=== PATIENT | female | born 1960 | race Caucasian/White ===

== ENCOUNTER 2018-03-09 08:35 | Emergency (ER) | payer OTHER ==
[2018-03-09] MEDS ORDERED: Ondansetron ODT 4 MG TAB ONE (08:57)
[2018-03-09] MEDS ORDERED: Lorazepam 2 MG/ML VIAL ONE (08:57)
[2018-03-09 09:18] LABS: #Eosinphils 0.1 thou/uL (0.0-0.7); #Lymphocytes 1.9 thou/uL (1.20-3.40); #Monocytes 0.6 thou/uL (0.11-0.59); #Neutrophils 3.6 thou/uL (1.40-6.50); %Basophils 0.8 % (0.0-1.0); %Eosinophils 1.2 % (0.0-10.0); %Lymphocytes 29.8 % (21.0-51.0); %Neutrophils 58.2 % (42.0-75.0); Hemoglobin 14.5 g/dL (12.0-16.0); Mean Corpuscular HGB CONC 34.9 g/dL (32.0-36.0); Mean Corpuscular Hemoglobin 35.3 pg (27.0-31.0); Mean Platelet Volume 6.1 fL (7.4-10.4); Platelet Count 190 thou/uL (130-400); RBC Distribution Width 13.5 % (11.5-14.5); Red Blood Cell (RBC) Count 4.12 mill/uL (4.20-5.40); White Blood Cell (WBC) Count 6.2 thou/uL (4.8-10.8)
[2018-03-09 09:59] LABS: ALT (SGPT) 26 U/L (8-55); AST (SGOT) 61 U/L (5-34); Albumin 4.6 g/dL (3.5-5.0); Alkaline Phosphatase 83 U/L (40-150); Anion Gap 24 mmol/L (10-20); BUN (Urea Nitrogen) 11 mg/dL (9.8-20.1); Bilirubin, Total 1.9 mg/dL (0.2-1.2); Calc. Creatinine Clearance 0 mL/min (70-130); Calcium 10.3 mg/dL (7.8-10.44); Carbon Dioxide 20 mmol/L (22-29); Chloride 98 mmol/L (98-107); Estimated GFR-MDRD 31; Globulin 3.3 g/dL (2.4-3.5); Glucose 126 mg/dL (70-105); Potassium 3.3 mmol/L (3.5-5.1); Protein, Total 7.9 g/dL (6.0-8.3); Sodium 139 mmol/L (136-145)
[2018-03-09 10:42] LABS: Bilirubin Moderate (Negative); Blood, Urine Negative (Negative); Glucose, Urine (Dipstick) Negative (Negative); Leukocyte Trace (Negative); Nitrite Negative (Negative); Protein, Urine (Dipstick) Negative (Neg-Trace); Urobilinogen 0.2 mg/dL (0.2-1.0)
[2018-03-09 10:43] LABS: Clarity Clear (Clear)
[2018-03-09 10:53] LABS: Amphetamine Not Detected (NotDetected); Barbiturates Screen Not Detected (NotDetected); Benzodiazepine Screen Not Detected (NotDetected); Cocaine Metabolite Screen Not Detected (NotDetected); Medtox Control Line Valid? VALID (VALID); Medtox Reader # READER 4; Methadone Not Detected (NotDetected); Methamphetamine Not Detected (NotDetected); Opiate Screen Not Detected (NotDetected); Oxycodone Screen Not Detected (NotDetected); Phencyclidine (PCP) Not Detected (NotDetected); THC/Cannabinoid Screen Detected (NotDetected); Tricyclic Screen Detected (NotDetected)
[2018-03-09 10:57] LABS: Bacteria/HPF Rare-Few HPF (None Seen); RBC/HPF 0-3 HPF (0-3); Squamous Epithelial 0-3 HPF (0-3); WBC/HPF 0-3 HPF (0-3)
[2018-03-09 11:28] LABS: CKMB 5.5 ng/mL (0-6.6); Troponin I Less than 0.010 ng/mL (< 0.028)
[2018-03-09 11:34] LABS: CK (CPK) 430 U/L (29-168); Lipase 21 U/L (8-78)
[2018-03-09 11:35] LABS: Acetaminophen Less than 6.0 mcg/mL (10.0-30.0); Alcohol Less than 10 mg/dL (Less than 10); Salicylate Less than 8.0 mg/dL (15.0-30.0)
--- NOTE | 2018-03-09 13:05 | CT ---
BRAIN CT WITHOUT IV CONTRAST: HISTORY: A 57-year-old female with a history of altered mental status and anxiety, panic attack. FINDINGS: No focal mass or midline shift. No intraaxial or extraaxial hemorrhage. The sinuses and mastoids ar e clear of acute process, other than some mild right ethmoid sinus mucosal disease. IMPRESSION: No acute intracranial process. No mass or bleed. Atrophy and chronic white matter ischemic change. POS: [facility]
--- NOTE | 2018-03-09 13:17 | RAD ---
PORTABLE CHEST 1 VIEW: DATE: 03/09/18. TIME: 10:39 a.m. HISTORY: Altered mental status. FINDINGS: The heart size is normal. There is elevation of the right hemidiaphragm. No lobar consolidation, pn eumothoraces, or pleural effusions are seen. IMPRESSION: No radiographic evidence of acute cardiopulmonary process. POS: [facility]
== END 2018-03-09 14:03 | disposition home or self-care (01) ==
LOC: ERS 08:35
DX: F41.9 Anxiety disorder, unspecified (principal); E03.9 Hypothyroidism, unspecified; F32.9 Major depressive disorder, single episode, unspecified
CPT/HCPCS: 36415; 51701; 70450; 71045; 80053; 80306; 80307; 81003; 81015; 82140; 82550; 82553; 83690; 84443; 84484; 85025; 93005; 96361; 96374; A4353; J2060; Q0162

== ENCOUNTER 2019-01-23 16:49 | Emergency (ER) | payer OTHER ==
[2019-01-23] MEDS ORDERED: Ketorolac Tromethamine 30 MG/ML VIAL ONE (17:47)
[2019-01-23 18:14] LABS: Bilirubin Small (Negative); Blood, Urine Trace (Negative); Clarity Cloudy (Clear); Glucose, Urine (Dipstick) Negative (Negative); Leukocyte Moderate (Negative); Nitrite Positive (Negative); Protein, Urine (Dipstick) Negative (Neg-Trace); Urobilinogen 0.2 mg/dL (0.2-1.0)
[2019-01-23 18:23] LABS: Bacteria/HPF 3+ HPF (None Seen); RBC/HPF 0-3 HPF (0-3); Squamous Epithelial 0-3 HPF (0-3)
--- NOTE | 2019-01-23 19:19 | RAD ---
PA CHEST AND LEFT RIBS TOTAL OF 4 VIEWS: Date: 01/23/19 HISTORY: Injury. Comparison made to a portable chest film of 03/09/18. FINDINGS: There is a fracture of the posterior right 8th rib with deformity noted. This was not present on the prior study and represents rib fracture of undetermined age. Recommend clinical correlation. No evidence of left rib fracture identified. There is a scoliotic curvature of the thoracic spine whi ch is stable from the prior study. IMPRESSION: 1. Deformity of the posterior right 8th rib, consistent with rib fracture of undetermined age. 2. No acute left rib fracture identified. POS: [facility]
== END 2019-01-23 18:25 | disposition home or self-care (01) ==
LOC: SCSER 16:49
DX: S20.212A Contusion of left front wall of thorax, initial encounter (principal); N39.0 Urinary tract infection, site not specified; F41.9 Anxiety disorder, unspecified; F32.9 Major depressive disorder, single episode, unspecified; Z79.899 Other long term (current) drug therapy; W08.XXXA Fall from other furniture, initial encounter
CPT/HCPCS: 81003; 81015; 87077; 87086; 87186; 93005; 96372; J1885

== ENCOUNTER 2020-09-23 07:00 | Outpatient (CLI) | payer OTHER ==
[2020-09-23 12:06] LABS: #Eosinphils 0.2 10x3/uL (0.0-0.5); #Monocytes 0.7 10x3/uL (0.0-1.1); #Neutrophils 4.2 10x3/uL (1.5-8.4); %Basophils 0.6 % (0.0-2.0); %Eosinophils 2.5 % (0.0-6.0); %Lymphocytes 23.9 % (18.0-47.0); %Monocytes 10.1 % (0.0-10.0); %Neutrophils 62.3 % (40.0-75.0); Hemoglobin 12.6 g/dL (12.0-16.0); Mean Corpuscular HGB CONC 33.3 G/DL (32.0-36.0); Mean Corpuscular Hemoglobin 35.2 PG (27.0-33.0); Mean Corpuscular Volume 105.6 fl (80.0-100.0); Mean Platelet Volume 8.8 fl (7.4-10.4); Platelet Count 315 10x3/uL (130-400); Red Blood Cell (RBC) Count 3.58 10x6/uL (3.90-5.20); White Blood Cell (WBC) Count 6.8 10x3/uL (4.5-11.0)
--- NOTE | 2020-09-23 12:21 | EKG ---
Test Reason : PREOP Blood Pressure : / mmHG Vent. Rate : 099 BPM Atrial Rate : 099 BPM P-R Int : 128 ms QRS Dur : 062 ms QT Int : 338 ms P-R-T Axes : 055 023 073 degrees QTc Int : 433 ms Normal sinus rhythm Low voltage QRS ns T wave changes Confirmed by DR. Agnes ANN (3) on 09/23/2020 12:20:32 PM Referred By: ARMANDO Confirmed By:DR. Agnes ANN
[2020-09-23 12:27] LABS: Macrocytosis SLIGHT = 6-15 cells (100X) (0-5/hpf); Platelet Morphology Comment Appears Adequate
[2020-09-23 20:52] LABS: SARS-CoV-2 PCR by NAA Not Detected (NotDetected)
== END 2020-09-23 07:01 | disposition home or self-care (01) ==
LOC: LABBT 07:00
PROVIDERS: ATTEND Orthopaedic Surgery Hand Surgery
DX: Z01.818 Encounter for other preprocedural examination (principal); Z20.822 Contact with and (suspected) exposure to COVID-19; S52.601A Unspecified fracture of lower end of right ulna, initial encounter for closed fracture
CPT/HCPCS: 85025; 87635; 93005; 93010; U0003; U0005

== ENCOUNTER 2020-09-26 08:14 | Day surgery (SDC) | payer OTHER ==
[2020-09-24 09:51] VITALS: BMI 25.0
[2020-09-26] MEDS ORDERED: PROPOFOL 200 MG/20 ML VIAL ONE (08:57)
[2020-09-26] MEDS ORDERED: Lidocaine 1% PF 5 ML VIAL ONE (08:57)
[2020-09-26] MEDS ORDERED: Ondansetron PF 4 MG/2 ML Vial ONE (08:57)
[2020-09-26] MEDS ORDERED: Dexamethasone 20 MG/5 ML VIAL ONE (08:57)
[2020-09-26] MEDS ORDERED: Ketorolac Tromethamine 30 MG/ML VIAL ONE (08:57)
[2020-09-26] MEDS ORDERED: Bupivacaine HCl 0.5%/Epinephrine 1:200,000/PF 30 ml Vial ONE (08:57)
[2020-09-26] MEDS ORDERED: Fentanyl 100 MCG/2 ML VIAL ONE ×2 (09:29→09:54)
[2020-09-26] MEDS ORDERED: Lidocaine 1% (PF) 30 ML VIAL ONE (09:29)
[2020-09-26] MEDS ORDERED: Midazolam HCl 2 mg/2 ml Vial ONE (09:29)
[2020-09-26] MEDS ORDERED: Bupivacaine PF 0.5% 30 ML VIAL ONE (09:45)
[2020-09-26] MEDS ORDERED: Sodium Chloride 0.9% 10 ML ONE (09:46)
[2020-09-26] MEDS ORDERED: Bacitracin Zinc Ointment 30 gm TUBE ONE (09:46)
== END 2020-09-26 15:03 | disposition home or self-care (01) ==
LOC: SDC 08:14
PROVIDERS: ATTEND Orthopaedic Surgery Hand Surgery
PROC: 0PUL07Z Supplement Left Ulna with Autologous Tissue Substitute, Open Approach (ICD-10-PCS; principal; 2020-09-26)
PROC: 0PSL04Z Reposition Left Ulna with Internal Fixation Device, Open Approach (ICD-10-PCS; principal; 2020-09-26)
DX: S52.602A Unspecified fracture of lower end of left ulna, initial encounter for closed fracture (principal); K59.00 Constipation, unspecified; Z79.899 Other long term (current) drug therapy; Z88.5 Allergy status to narcotic agent; Z88.6 Allergy status to analgesic agent
CPT/HCPCS: 76000; C1713; J0690; J1100; J1885; J2001; J2250; J2405; J2704; J3010; J3490; S0020

== ENCOUNTER 2021-03-24 06:20 | Inpatient (IN) | payer OTHER ==
[2021-03-24] MEDS ORDERED: Fentanyl 100 MCG/2 ML VIAL ONE (06:33)
[2021-03-24] MEDS ORDERED: Lidocaine 1% (PF) 30 ML VIAL ONE (06:33)
[2021-03-24] MEDS ORDERED: Midazolam HCl 2 mg/2 ml Vial ONE (06:33)
[2021-03-24] MEDS ORDERED: Neomycin-Polymyxin 1 ML AMP ONE (06:40)
[2021-03-24] MEDS ORDERED: Bupivacaine PF 0.5% 30 ML VIAL ONE (06:40)
[2021-03-24] MEDS ORDERED: Bacitracin Zinc Ointment 30 gm TUBE ONE (06:40)
[2021-03-24] MEDS ORDERED: Promethazine HCl 25 MG/ML VIAL ONE (06:54)
[2021-03-24] MEDS ORDERED: Ondansetron PF 4 MG/2 ML Vial ONE (07:35)
[2021-03-24] MEDS ORDERED: Dexamethasone 20 MG/5 ML VIAL ONE (07:35)
[2021-03-24] MEDS ORDERED: ePHEDrine 50 MG/ML VIAL ONE (07:35)
[2021-03-24] MEDS ORDERED: Rocuronium Bromide 10 MG/ML (10ML VIAL) ONE (07:35)
[2021-03-24] MEDS ORDERED: Lidocaine 1% PF 5 ML VIAL ONE (07:35)
[2021-03-24] MEDS ORDERED: PROPOFOL 200 MG/20 ML VIAL ONE (07:35)
[2021-03-24] MEDS ORDERED: Glycopyrrolate 0.2 MG/ML 5 ML SYRINGE ONE (07:35)
[2021-03-24] MEDS ORDERED: Ropivacaine 0.5% HCl/PF (150 MG/30 ML VIAL) ONE (07:35)
[2021-03-24] MEDS ORDERED: Ketorolac Tromethamine 30 MG/ML VIAL ONE (07:35)
[2021-03-24 07:54] LABS: #Eosinphils 0.2 thou/uL (0.0-0.7); #Lymphocytes 1.2 thou/uL (1.20-3.40); #Monocytes 0.3 thou/uL (0.11-0.59); #Neutrophils 1.9 thou/uL (1.40-6.50); %Basophils 1.1 % (0.0-1.0); %Eosinophils 4.6 % (0.0-10.0); %Lymphocytes 33.8 % (21.0-51.0); %Monocytes 8.5 % (0.0-10.0); Mean Corpuscular Hemoglobin 37.5 pg (27.0-31.0); Mean Platelet Volume 6.7 fL (7.4-10.4); Platelet Count 185 thou/uL (130-400); RBC Distribution Width 12.9 % (11.5-14.5); Red Blood Cell (RBC) Count 2.93 mill/uL (4.20-5.40); White Blood Cell (WBC) Count 3.6 thou/uL (4.8-10.8)
[2021-03-24 08:14] LABS: RBC Morphology Normal
[2021-03-24] MEDS ORDERED: Thrombin 5000 UNITS/5 ML VIAL ONE (08:29)
[2021-03-24] MEDS ORDERED: Mineral Oil Sterile 10ML 10 ML UDCUP ONE (08:29)
[2021-03-24] MEDS ORDERED: EPINEPHrine 1 MG/ML AMP ONE (12:27)
[2021-03-24] MEDS ORDERED: SUGAMMADEX SODIUM 200 MG/2 ML VIAL ONE (12:52)
[2021-03-24] MEDS ORDERED: Promethazine HCl 25 MG/ML VIAL IVPB PRN (13:04)
[2021-03-24] MEDS ORDERED: Ondansetron HCl/PF 4 MG/2 ML Vial IVP PRN (13:04)
[2021-03-24] MEDS ORDERED: Promethazine HCl 25 MG/ML VIAL IM PRN ×2 (13:04→13:24)
[2021-03-24] MEDS ORDERED: Morphine 4 MG/ML VIAL SLOW IVP PRN (13:24)
[2021-03-24] MEDS ORDERED: Ondansetron PF 4 MG/2 ML Vial SLOW IVP PRN (13:24)
[2021-03-24] MEDS ORDERED: traMADol HCl 50 MG TAB PO PRN ×2 (13:24→21:26)
[2021-03-24] MEDS ORDERED: Meperidine HCl/PF 25 MG/ML VIAL IM PRN (13:27)
[2021-03-24] MEDS ORDERED: Communication Order-Pharmacy FS PRN (13:30)
[2021-03-24 16:22] VITALS: BMI 23.0
[2021-03-24] MEDS ORDERED: Vancomycin 1 GM in Premix Bag 1 BAG IVPB SCH ×2 (19:45→21:00)
[2021-03-24] MEDS ORDERED: Venlafaxine HCl XR 75 MG CAP PO SCH (21:00)
[2021-03-24] MEDS: Aspirin 81 mg Enteric Coated Tablet PO SCH (21:09)
[2021-03-24] MEDS: Sodium Chloride 0.9% 100 ML IV SCH (21:09)
[2021-03-24] MEDS ORDERED: Promethazine 25 MG TAB PO PRN (21:23)
[2021-03-24] MEDS ORDERED: Zolpidem Tartrate 5 MG TAB PO PRN (22:40)
[2021-03-25] MEDS: Sodium Chloride 0.9% 100 ML IV SCH ×5 (05:30→17:48)
[2021-03-25] MEDS ORDERED: Meloxicam 7.5 MG TAB PO SCH (09:00)
[2021-03-25] MEDS ORDERED: Venlafaxine HCl XR 150 MG CAP PO SCH (09:00)
[2021-03-25] MEDS ORDERED: Bupropion 150 MG XL TAB PO SCH (09:00)
[2021-03-25] MEDS ORDERED: TETANUS AND DIPHTHERIA TOX/PF 0.5 ML DISP.SYRIN IM SCH (09:00)
[2021-03-25] MEDS: Aspirin 81 mg Enteric Coated Tablet PO SCH (10:14)
[2021-03-25] MEDS: clonazePAM 0.5 MG TAB PO SCH ×2 (10:15→16:03)
[2021-03-25 15:39] VITALS: BP 161/95; TEMP 98.1
[2021-03-25] MEDS ORDERED: Vancomycin HCl 1.25 GM in Sodium Chloride 0.9% 250 ML 250 ML IVPB SCH (21:00)
[2021-03-25] MEDS ORDERED: QUETIAPINE FUMARATE PO SCH (21:00)
== END 2021-03-25 18:55 | disposition home or self-care (01) | DRG 496 ==
LOC: SDC 06:20 → SURG A 13:24
PROVIDERS: ADMIT Orthopaedic Surgery Hand Surgery; ATTEND Orthopaedic Surgery Hand Surgery
PROC: 0PPK04Z Removal of Internal Fixation Device from Right Ulna, Open Approach (ICD-10-PCS; principal; 2021-03-24)
PROC: 0PSH04Z Reposition Right Radius with Internal Fixation Device, Open Approach (ICD-10-PCS; 2021-03-24)
PROC: 0PUK07Z Supplement Right Ulna with Autologous Tissue Substitute, Open Approach (ICD-10-PCS; 2021-03-24)
PROC: 0QB30ZZ Excision of Left Pelvic Bone, Open Approach (ICD-10-PCS; 2021-03-24)
DX: S52.501A Unspecified fracture of the lower end of right radius, initial encounter for closed fracture (principal); S52.601K Unspecified fracture of lower end of right ulna, subsequent encounter for closed fracture with nonunion; G43.909 Migraine, unspecified, not intractable, without status migrainosus; Z88.8 Allergy status to other drugs, medicaments and biological substances; Z88.5 Allergy status to narcotic agent
CPT/HCPCS: 36415; 76000; 82565; 85025; C1713; J0171; J0690; J1100; J1885; J2001; J2250; J2270; J2405; J2550; J2704; J2795; J3010; J3370; J3490; S0020

== ENCOUNTER 2021-06-12 09:08 | Outpatient (CLI) | payer OTHER ==
[2021-06-12] MEDS ORDERED: ADENOSINE 60 MG/20 ML VIAL ONE (14:36)
== END 2021-06-12 09:09 | disposition home or self-care (01) ==
LOC: NM 09:08
PROVIDERS: ATTEND Internal Medicine
DX: R07.9 Chest pain, unspecified (principal)
CPT/HCPCS: 78452; 93017; A9500; J0153

== ENCOUNTER 2021-08-06 13:55 | Outpatient (CLI) | payer OTHER ==
[2021-08-06 16:08] LABS: #Eosinphils 0.2 10x3/uL (0.0-0.5); #Monocytes 0.5 10x3/uL (0.0-1.1); %Basophils 0.6 % (0.0-2.0); %Eosinophils 2.6 % (0.0-6.0); %Monocytes 8.7 % (0.0-10.0); %Neutrophils 47.8 % (40.0-75.0); Hemoglobin 11.7 g/dL (12.0-15.5); Mean Corpuscular HGB CONC 32.9 g/dL (32.0-36.0); Mean Corpuscular Hemoglobin 32.8 pg (27.0-33.0); Mean Corpuscular Volume 99.7 fl (81.6-98.3); Mean Platelet Volume 9.1 fl (7.4-10.4); Platelet Count 327 10x3/uL (150-450); RBC Distribution Width 13.2 % (11.5-14.5); Red Blood Cell (RBC) Count 3.57 10x6/uL (3.90-5.03); White Blood Cell (WBC) Count 6.2 10x3/uL (3.5-10.5)
[2021-08-06 16:10] LABS: Bilirubin Neg (Negative); Blood, Urine Negative (Negative); Clarity Clear (Clear); Glucose, Urine (Dipstick) Normal (Negative); Ketone, Urine Negative (Negative); Leukocyte 500 (Negative); Nitrite Positive (Negative); Protein, Urine (Dipstick) Negative (Neg-Trace); Urobilinogen Normal mg/dL (Less than 2)
[2021-08-06 16:22] LABS: Bacteria/HPF Rare-Few HPF (None Seen); RBC/HPF 0-3 HPF (0-3)
[2021-08-07 07:58] LABS: SARS-CoV-2 PCR by NAA Not Detected (NotDetected)
== END 2021-08-06 13:56 | disposition home or self-care (01) ==
LOC: LABBT 13:55
PROVIDERS: ATTEND Orthopaedic Surgery Hand Surgery
DX: Z01.818 Encounter for other preprocedural examination (principal); Z20.822 Contact with and (suspected) exposure to COVID-19
CPT/HCPCS: 81003; 81015; 85025; 93005; 93010; U0003; U0005

== ENCOUNTER 2021-08-11 06:16 | Inpatient (IN) | payer OTHER ==
[2021-08-10 10:30] VITALS: BMI 21.9
[2021-08-11] MEDS ORDERED: Bacitracin Zinc Ointment 30 gm TUBE ONE (06:45)
[2021-08-11] MEDS ORDERED: Neomycin-Polymyxin 1 ML AMP ONE (06:45)
[2021-08-11] MEDS ORDERED: Bupivacaine PF 0.5% 30 ML VIAL ONE (06:45)
[2021-08-11] MEDS ORDERED: ceFAZolin 2 GM/DEX 5% 100 ML BAG ONE (06:48)
[2021-08-11] MEDS ORDERED: Fentanyl 100 MCG/2 ML VIAL ONE ×2 (06:55→12:58)
[2021-08-11] MEDS ORDERED: Midazolam HCl 2 mg/2 ml Vial ONE (06:55)
[2021-08-11] MEDS ORDERED: PROPOFOL 200 MG/20 ML VIAL ONE (07:20)
[2021-08-11] MEDS ORDERED: Phenylephrine 10 MG/ML VIAL ONE (07:20)
[2021-08-11] MEDS ORDERED: ePHEDrine 50 MG/ML VIAL ONE (07:20)
[2021-08-11] MEDS ORDERED: Bupivacaine HCl 0.5%/Epinephrine 1:200,000/PF 30 ml Vial ONE (07:20)
[2021-08-11] MEDS ORDERED: Ondansetron PF 4 MG/2 ML Vial ONE (07:20)
[2021-08-11] MEDS ORDERED: Lidocaine 1% PF 5 ML VIAL ONE (07:20)
[2021-08-11] MEDS ORDERED: diphenhydrAMINE 50 MG/ML VIAL ONE (07:20)
[2021-08-11] MEDS ORDERED: Ketorolac Tromethamine 30 MG/ML VIAL ONE (07:20)
[2021-08-11] MEDS ORDERED: Dexamethasone 20 MG/5 ML VIAL ONE (07:20)
[2021-08-11] MEDS ORDERED: Thrombin 5000 UNITS/5 ML VIAL ONE (11:08)
[2021-08-11] MEDS ORDERED: traMADol HCl 50 MG TAB PO PRN (12:13)
[2021-08-11] MEDS ORDERED: Fentanyl 100 MCG/2 ML VIAL SLOW IVP PRN (12:13)
[2021-08-11] MEDS ORDERED: Morphine 4 MG/ML VIAL SLOW IVP PRN (12:13)
[2021-08-11] MEDS ORDERED: Acetaminophen 325 MG TAB PO PRN (12:13)
[2021-08-11] MEDS ORDERED: Acetaminophen/Codeine 30-300mg Tablet PO PRN (12:13)
[2021-08-11] MEDS ORDERED: TETANUS AND DIPHTHERIA TOX/PF 0.5 ML DISP.SYRIN IM SCH (12:15)
[2021-08-11] MEDS ORDERED: Communication Order-Pharmacy FS PRN (12:15)
[2021-08-11] MEDS ORDERED: Meperidine HCl/PF 25 MG/ML VIAL IM PRN (12:17)
[2021-08-11] MEDS ORDERED: Vancomycin 1 GM in Premix Bag 1 BAG IVPB SCH (18:00)
[2021-08-11 19:22] LABS: Chloride 101 mmol/L (98-107); Potassium 4.5 mmol/L (3.5-5.1); Sodium 133 mmol/L (136-145)
[2021-08-11 19:23] LABS: Calcium 8.9 mg/dL (7.8-10.44); Glucose 221 mg/dL (80-115)
[2021-08-11 19:25] LABS: Anion Gap 15 mmol/L (10-20); Carbon Dioxide 22 mmol/L (23-31)
[2021-08-11 19:27] LABS: BUN (Urea Nitrogen) 10 mg/dL (9.8-20.1); Calc. Creatinine Clearance 45 mL/min (70-130)
[2021-08-11] MEDS: Aspirin 81 mg Enteric Coated Tablet PO SCH (20:37)
[2021-08-11] MEDS ORDERED: Ondansetron ODT 4 MG TAB PO PRN (22:37)
[2021-08-11 23:37] LABS: SARS-CoV-2 PCR by NAA Not Detected (NotDetected)
[2021-08-12] MEDS: Aspirin 81 mg Enteric Coated Tablet PO SCH (08:21)
[2021-08-12] MEDS ORDERED: Vancomycin 1 GM in Premix Bag 1 BAG IVPB SCH (18:00)
[2021-08-12 20:46] VITALS: BP 134/82; TEMP 98.5
== END 2021-08-12 20:35 | disposition home or self-care (01) | DRG 512 ==
LOC: SDC 06:16 → T4-B 12:17
PROVIDERS: ADMIT Orthopaedic Surgery Hand Surgery; ATTEND Orthopaedic Surgery Hand Surgery
PROC: 0PSK04Z Reposition Right Ulna with Internal Fixation Device, Open Approach (ICD-10-PCS; principal; 2021-08-11)
PROC: 2W3DX1Z Immobilization of Left Lower Arm using Splint (ICD-10-PCS; 2021-08-11)
DX: S52.201K Unspecified fracture of shaft of right ulna, subsequent encounter for closed fracture with nonunion (principal)
CPT/HCPCS: 36415; 76000; 80048; C1713; J1100; J1200; J1885; J2250; J2270; J2370; J2405; J2704; J3010; J3370; J3490; Q0162; S0020; U0003; U0005

== ENCOUNTER 2022-09-22 11:47 | Outpatient (CLI) | payer OTHER | END 2022-09-22 11:48 | disposition home or self-care (01) | LOC: SCSMRI 11:47 | PROVIDERS: ATTEND Psychiatry & Neurology Neurology | DX: R26.9 Unspecified abnormalities of gait and mobility (principal); M47.812 Spondylosis without myelopathy or radiculopathy, cervical region | CPT/HCPCS: 70553; 72156; 82565 ==